=== PATIENT | male | born 1955 | race African-American/Black ===

== ENCOUNTER 2021-03-25 15:00 | Outpatient (CLI) | payer OTHER | END 2021-03-25 15:30 | disposition home or self-care (01) | LOC: PPH VACUNA 15:00 | PROVIDERS: ATTEND Emergency Medicine Pediatric Emergency Medicine | DX: Z23 Encounter for immunization (principal) ==

== ENCOUNTER 2023-06-07 11:44 | Emergency (ER) | payer OTHER ==
[~2023-06-07] VITALS: Ht 175.3 cm; Wt 71.2 kg
== END 2023-06-07 15:39 | disposition home or self-care (01) ==
LOC: ER 11:45
DX: U07.1 COVID-19 (principal); J10.1 Influenza due to other identified influenza virus with other respiratory manifestations; Z88.8 Allergy status to other drugs, medicaments and biological substances